=== PATIENT | female | born 1975 | race Caucasian/White ===

== ENCOUNTER → 2022-11-24 10:16 | Outpatient (CLI) | payer OTHER, SELFPAY ==
[2022-11-24 11:14] LABS: Hematocrit 28.7 % (36-46); Hemoglobin 9.5 g/dL (12.0-16.0); Mean Corpuscular Hemoglobin 27.4 PG (26-34); Mean Corpuscular Volume 82.9 fL (80-100); Platelet Count 290 X10^3/uL (150-400); Red Blood Cell Count 3.46 X10^6/uL (4.0-5.2); Red Cell Distribution Width 17.4 % (11.6-14.8); White Blood Cell Count 8.3 X10^3/uL (4.5-11.0)
[2022-11-24 11:32] LABS: Blood Urea Nitrogen 46 mg/dL (7-17); Calcium 8.8 mg/dL (8.4-10.2); Carbon Dioxide 29 mmol/L (22-32); Chloride 101 mmol/L (98-107); Estimated Glomerular Filt Rate 32 mL/min (>60); Glucose 109 mg/dL (70-100); HEMOLYSIS < 15 (0-50); Phosphorous 3.1 mg/dL (2.5-4.5); Potassium 3.7 mmol/L (3.4-5.1); Sodium 133 mmol/L (137-145)
[2022-11-24 16:13] LABS: Creatinine Urine Random 84.7 mg/dL
[2022-11-24 17:42] LABS: Protein (Total) Urine Random 824 mg/dL (0-12); Protein Creatinine Ratio Urine 9.72 GRAM/24H
[2022-11-26 07:45] LABS: Parathyroid Hormone Int 99 pg/mL (15-65)
== END ==
PROVIDERS: Referring Provider Internal Medicine Nephrology; Visit Provider Internal Medicine Nephrology
DX: N05.9 Unspecified nephritic syndrome with unspecified morphologic changes (principal); D70.9 Neutropenia, unspecified; D63.1 Anemia in chronic kidney disease; E83.30 Disorder of phosphorus metabolism, unspecified; N25.81 Secondary hyperparathyroidism of renal origin
CPT/HCPCS: 36415; 80048; 82570; 83970; 84100; 84156; 85027

== ENCOUNTER → 2023-07-09 19:02 | Outpatient (CLI) | payer OTHER, SELFPAY ==
--- NOTE | 2023-07-09 19:03 | DI.RAD.S_ITS ---
PROCEDURE: XR CHEST 2V INDICATIONS: Cough TECHNIQUE: 2 views of the chest were acquired. COMPARISON: None. FINDINGS: Surgical changes and devices: Clips in the left upper abdomen. Lungs and pleura: Lungs are clear. No pleural effusions or pneumothorax. Mediastinum: Mediastinal contours are normal. Heart size is normal. Bones and chest wall: No suspicious bony abnormalities. Soft tissues appear unremarkable. IMPRESSION: No acute cardiopulmonary abnormality is seen. Dictated by: Austin New M.D. on 07/10/2023 at 9:03 Approved by: Austin New M.D. on 07/10/2023 at 9:04
== END ==
LOC: RAD 19:03
PROVIDERS: Referring Provider Nurse Practitioner Family; Visit Provider Nurse Practitioner Family
DX: R05.9 Cough, unspecified (principal)
CPT/HCPCS: 71046